=== PATIENT | male | born 1965 | race Hispanic/Latino ===

== ENCOUNTER → 2017-10-27 | Outpatient (CLI) | payer OTHER ==
--- NOTE | 2017-10-27 09:56 | Diagnostic Imaging Report ---
PROCEDURE:SACRUM X-RAY TECHNIQUE:AP and lateral view sacrum INDICATION:Back pain radiating to the right side COMPARISON:None. FINDINGS: The sacrum and regional skeleton are intact and in anatomic alignment. Sacroiliac joints are normal. CONCLUSION: Normal sacrum series. Dictated by: Rafael Pollock M.D. on 10/27/2017 at 9:58 Electronically approved by: Rafael Pollock M.D. on 10/27/2017 at 9:58
--- NOTE | 2017-10-27 09:59 | Diagnostic Imaging Report ---
PROCEDURE:SP LUMBAR, COMPLETE MIN 4VW TECHNIQUE:AP, lateral, coned-down lateral and oblique views lumbar spine totaling 6 radiographs INDICATION:Low back pain radiating to the right side. COMPARISON:None. FINDINGS: 5 [id number] lumbar vertebral bodies. Lumbarization of S1. Vertebral body height is maintained. Mild disc space narrowing from L1-S1 with associated degenerative endplate changes. This is most notable at L4-L5 and L5-S1. Facet arthropathy at L4-L5 and L5-S1 with grade 1 anterolisthesis of L5 on S1. CONCLUSION: Multilevel degenerative disc disease and facet arthropathy, most notable at L4-L5 and L5-S1. Grade one anterolisthesis of L5 on S1 secondary to facet arthropathy. Given pain radiating to the right, MRI lumbar spine is recommended to evaluate for nerve root impingement. Dictated by: Rafael Pollock M.D. on 10/27/2017 at 10:02 Electronically approved by: Rafael Pollock M.D. on 10/27/2017 at 10:02
== END ==
LOC: RAD 08:51
PROVIDERS: ATTEND Internal Medicine
DX: S33.5XXA Sprain of ligaments of lumbar spine, initial encounter (principal)
CPT/HCPCS: 72110; 72220